=== PATIENT | female | born 1955 | race Two or more races ===

== ENCOUNTER 2020-10-08 14:33 | Emergency (ER) | payer MEDICAID, OTHER ==
[~2020-10-08] VITALS: Ht 154.9 cm; Wt 74.1 kg
[2020-10-08 15:04] VITALS: BP 132/67
[2020-10-08] MEDS ORDERED: DEXAMETHASONE 4 MG TABLET PO ONE (15:30)
--- NOTE | 2020-10-08 15:47 | NUR ---
PER PROVIDER JAMES HELTON.
== END 2020-10-08 16:15 | disposition home or self-care (01) ==
LOC: ED 15:45
DX: U07.1 COVID-19 (principal); B34.9 Viral infection, unspecified; J06.9 Acute upper respiratory infection, unspecified; R09.81 Nasal congestion; R05 Cough; M79.10 Myalgia, unspecified site; R06.02 Shortness of breath
CPT/HCPCS: 71045; 82962; 99284; U0003

== ENCOUNTER 2020-10-16 22:31 | Emergency (ER) | payer OTHER ==
[~2020-10-16] VITALS: Ht 154.9 cm; Wt 72.9 kg
--- NOTE | 2020-10-16 22:41 | NUR ---
BG 359 AT TRIAGE. EKG AT TRIAGE FOR DIZZINESS
[2020-10-16] MEDS ORDERED: SODIUM CHLORIDE FLUSH 10ML SYR IVF ONE (23:00)
[2020-10-16] MEDS ORDERED: SODIUM CHLORIDE 0.9% 1,000ML IVBOLUS ONE (23:00)
[2020-10-16 23:59] LABS: BASOPHILS % (AUTO) 0 % (0-1); EOSINOPHILS % (AUTO) 1 % (1-7); LYMPHOCYTES % (AUTO) 28 % (22-44); MEAN CORPUSCULAR HEMOGLOBIN 31.2 pg (27.0-34.8); MEAN CORPUSCULAR HGB CONC 34.5 g/dL (32.4-35.8); MEAN PLATELET VOLUME 9.6 fL (7.4-10.4); MONOCYTES % (AUTO) 8 % (2-9); NEUTROPHILS % (AUTO) 63 % (42-75); PLATELET COUNT 134 x10^3/uL (130-400); RED BLOOD COUNT 4.41 x10^6/uL (3.82-5.3); RED CELL DISTRIBUTION WIDTH 13.6 % (9.6-15.2)
[2020-10-17 00:02] LABS: ANION GAP 8 mmol/L (5-15); CALCIUM 9.3 mg/dL (8.5-10.1); CHLORIDE 101 mmol/L (98-107)
[2020-10-17 00:03] LABS: CREATININE 0.88 mg/dL (0.55-1.02)
--- NOTE | 2020-10-17 00:08 | NUR ---
blending tank tender: pt from lobby to room [id number]
[2020-10-17 00:11] LABS: MD NO
--- NOTE | 2020-10-17 00:30 | NUR ---
First contact with patient: Patient c/o high BS with dizziness. Task RN established IV and admin fluid per jan.
[2020-10-17 01:49] VITALS: BP 116/66
== END 2020-10-17 01:51 | disposition home or self-care (01) ==
LOC: ED 10-17 01:20
DX: E11.65 Type 2 diabetes mellitus with hyperglycemia (principal); R51.9 Headache, unspecified; R94.31 Abnormal electrocardiogram [ECG] [EKG]
CPT/HCPCS: 36415; 80048; 82962; 85025; 93005; 96360; 99284; J7030